=== PATIENT | female | born 1950 | race Caucasian/White ===

== ENCOUNTER 2017-03-25 05:42 | Inpatient (IN) | payer OTHER, MEDICARE ==
[2017-03-25] VITALS (11 sets, daily range): BP systolic 101–136; BP diastolic 62–83; PULSE 75–94; RESP 13–18; O2SAT 87–98
[~2017-03-25] VITALS: Ht 170.2 cm; Wt 104.1 kg
[~2017-03-25 05:42] MED LIST: ASPI-973 PO; CLOB15CR3 TOP; HYDR25TA4 PO; IBUP-1827 PO; LEVO150C2 PO; Lactated Ringer's 1,000 ML IV SCH; NAPR220C11 PO; SIMV20TA4 PO; SITA100T12 PO
[2017-03-25] MEDS ORDERED: fentaNYL-PF 50 mCg/mL 2 mL Inj ONE (05:58)
[2017-03-25] MEDS ORDERED: Dexamethasone 4 mg/mL Inj ONE (05:58)
[2017-03-25] MEDS ORDERED: Ondansetron 2 mg/mL 2 mL Inj ONE (05:58)
[2017-03-25] MEDS ORDERED: Bupivacaine Liposome 1.3% 20 mL Inj INFILTRATE ONE (06:00)
[2017-03-25] MEDS ORDERED: Propofol 10,000 mCg/mL 20 mL Inj ONE (06:00)
[2017-03-25] MEDS ORDERED: Vancomycin 1,000 mg/200 mL NS IV ONE (06:00)
[2017-03-25] MEDS ORDERED: CeFAZolin 2 Gm/50 mL D5W Premix IV ONE (06:00)
[2017-03-25] MEDS ORDERED: 0.9% Sodium Chloride 1,000 ML IV ONE (06:05)
--- NOTE | 2017-03-25 06:40 | PCM.HPANE ---
Patient Data Surgeon Admitting Provider: Attending Provider:Easton Alston DO Primary Care Physician:Shannon Glez PA-C Other Provider:Catarino Leblanc Anesthesia Reason for Visit Right Knee Djd Ht/WT & BMI Height (Feet): 5 Height (Inches): 7.00 Weight (Kilograms): 104.1 Body Mass Index 36.00 Allergies Coded Allergies: meloxicam (Verified Allergy, Mild, DIAHRREA, 04/09/16) Sulfa (Sulfonamide Antibiotics) (Verified Allergy, Unknown, 04/01/16) lactose (Verified Allergy, Unknown, 04/01/16) latex (Verified Allergy, Unknown, 04/01/16) metformin (Verified Allergy, Unknown, diarrhea, 04/05/16) Past Anesthesia History Anesthesia History: Denies:: Abnormal Airway, Anesthesia Reactions, Difficult Intubation, Fam Anesthesia Reaction, Fam Malignant Hypertherm, Malignant Hyperthermia Diabetes History Hx Diabetes?: Yes Type of Diabetes: Type II Glycemic Control: Diet Controlled Current Bedside Blood Glucose: 137 MRSA MRSA: No Medications Blood Thinner: Aspirin Hypertension Medication: Yes Home Meds Incl Beta Cheryl: No Reported Medications Olmesartan (Benicar)40 Mg Nwpwtk13 Mg PO DAILY Ref 0 03/25/17 Levothyroxine (Tirosint)150 Mcg Tdgdelu347 Mcg PO DAILY 03/21/17 Simvastatin 20 Mg Zedlyk70 Mg PO HS Ref 0 03/21/17 Sitagliptin Phos (Januvia)100 Mg Oftpoz625 Mg PO DAILY Ref 0 03/21/17 Ibuprofen 600 Mg Fhkvzh071 Mg PO QID PRN For Pain Ref 0 03/21/17 Hydrochlorothiazide 25 Mg Oigrzd20 Mg PO DAILY 30 Days Ref 0 03/21/17 Clobetasol Propionate/Emoll (Clobetasol Emollient 0.05% Crm)15 Gm Cream..g.1 Appl TOP BID PRN skin irritation #1 TUBE 03/21/17 Aspirin 81 Mg Xegnmo51 Mg PO DAILY Ref 0 03/21/17 Naproxen Sodium (Aleve)220 Mg Xsafvqm487 Mg PO PRN For Pain 03/21/17 Discontinued Reported Medications Triamcinolone Acet (Triamcinolone Acetonide Cream)1 Applic/0.25 Gm Cr1 Applic EXT BID #60 GM Ref 0 04/01/16 Levothyroxine (Tirosint)150 Mcg Ajpobag438 Mcg PO DAILY 04/01/16 Simvastatin 20 Mg Eckyfm09 Mg PO HS Ref 0 04/01/16 Estradiol 0.025 mg/24 hr Patch 1 Each Patch.tdwk1 Patch TRANSDERM WEEKLY Ref 0 04/01/16 Clobetasol Propionate 15 Gm Oint...g.15 Gm TP PRN irritation 04/01/16 Olmesartan (Benicar)20 Mg Wtsfgj36 Mg PO DAILY Ref 0 04/01/16 Discontinued Scripts Enoxaparin Sodium 40 Mg/0.4 Ml Qqfbuen77 Mg SUBQ Q24H #10 SYR Prov:Ameena Bragg PA-C 04/12/16 Hydroxyzine Pamoate (HydrOXYzine Pamoate)25 Mg Aoqqbdg69 Mg PO Q4H PRN For Spasm and/or Restlessness #50 CAPSULE Prov:Ameena Bragg PA-C 04/12/16 oxyCODONE-Acetaminophen 5-325 mg 1 Each Tablet1-2 Tab PO Q4H PRN For Severe Pain #90 TABLET Max 8 per day Prov:Ameena Bragg PA-C 04/12/16 History History of ENT Problems?: No HEENT History: Positive for:: Sinus Problem (sinus surgery) Denies:: Abnormal Airway Difficult Intubation Hearing Problem Denture Type: None Teeth Condition: Within Normal Limits Hx of Heart Problems?: Yes Cardiovascular History: Positive for:: Hypertension Denies:: AICD Atrial Fibrillation Heart Murmur Irregular Heartbeat Pacemaker Hx of Respiratory Problem?: No Respiratory History: Denies:: Asthma COPD Emphysema Oxygen Administration Use of C-PAP Machine Hx Neurologic Problems?: Yes Neurological History: Positive for:: Headaches Denies:: Dementia Hx of GI Problems?: No Hx of Problems?: No Genitourinary History: Denies:: Kidney Stones Urinary Tract Infection Female Hx: Denies:: Currently Problems with Breasts? Skin History: Denies:: History Skin Disorders? Pressure Ulcers Hx Musculoskeletal Problems?: Yes Musculoskeletal History: Positive for:: Degenerative Joint Joint Replacement (left knee) Osteoarthritis Denies:: Musculoskeletal Trauma (right knee current admission problem) Hx of Psycho/Social Problems?: No Psycho Social History: Denies:: Hx Depression Hx Surgeries?: Yes (Hyster, L knee, tonsils, c section,lap ovarian cyst, feet, nose ) Hx Any Other Health Problems?: Yes Other History: Positive for:: Thyroid Disease Denies:: Cancer Hx Diabetes: YesBedside Blood Glucose: 137 Hx Alcohol Use: NoHx Substance Use: No Smoking Status: Never Smoker Have You Smoked inLast 12 mo: No Stop/Bang Treated for Sleep Apnea?: No Do You Have a CPAP Machine?: No S-Snoring: Do You Snore Loudly: Yes T-Tired: feel tired, fatigued: No O-Obsered: Observed not breath: No P-Blood Pressure: treated: Yes B- Body Mass Index > 35 kg/m2: No A- Age over 50: No N- Neck Large Circumference: No G- Gender Male: No APARNA Risk Assessment: Low Risk, <3 Yes Risk Assessment Category Category 1A: Patient has history of documented sleep apnea, and HAS NOT received any narcotic, sedative or anesthesia administration during this stay. Category 1B: Patient has history of documented sleep apnea, and HAS received any narcotic , sedative or anesthesia administration during this stay Category 2: Patient has SUSPECTED Obstructive Sleep Apnea, and HAS received any narcotic , sedative or anesthesia administration during this stay. Category 3: Patient has SUSPECTED Obstructive Sleep Apnea and HAS NOT received narcotic, sedative or anesthesia administration during this stay. Category 4: Outpatient in Procedural Areas with known sleep apnea or who screen positive for High Risk via the STOP/BANG questionnaire. Exam Exam Vital Signs Vital Signs Date Time Temp Pulse Resp B/P Pulse Ox O2 Delivery O2 Flow Rate FiO2 03/25/17 06:16 36.5 83 18 134/83 95 Room Air General Appearance: Alert, Oriented X3, Cooperative, No Acute Distress HEENT/AIRWAY: MP 2 Lungs: Clear to Auscultation, Normal Air Movement Heart: Exam Unremarkable, Regular Rate/Rhythm, No Murmurs/Rubs/Gallops Meds/Labs/Diagnostics Admission Meds Current Medications Sodium Chloride (Normal Saline) 1,000 ml @ ud STK-MED ONCE IV Last administered on 03/25/17t 06:05; Start 03/25/17 at 06:05; Stop 03/25/17 at 06:24 ; Status DC Bedside Blood Glucose: 137 Plan Impression Patient chart reviewed, patient interviewed and anesthestic plan with risks, benefits, and alternatives discussed, and informed consent obtained. NPO per Anesth. Guidelines: Yes ASA Physical Status: ASA2 Mod Systemic Disease Anesthetic Plan: Regional Block, SAB Bene/Risks/Altern/Consents: Yes HP Complete Prior to Induction: Yes Noe Garcia MD Mar 25, 2017 06:40
[2017-03-25] MEDS ORDERED: OLME40TA3 PO (07:18)
[2017-03-25] MEDS ORDERED: 0.9% Sodium Chloride 10 mL Inj INFILTRATE ONE (08:15)
[2017-03-25] MEDS ORDERED: Bupivacaine-MPF 0.5% W/EPI 30 mL Inj INFILTRATE ONE (08:15)
[2017-03-25] MEDS ORDERED: Lactated Ringer's 500 ML IV PRN (08:23)
[2017-03-25] MEDS ORDERED: Lactated Ringer's 1,000 ML IV SCH (08:23)
[2017-03-25] MEDS ORDERED: HYDROmorphone 1 mg/mL Inj IVPUSH PRN (08:25)
[2017-03-25] MEDS ORDERED: Ondansetron 2 mg/mL 2 mL Inj IVPUSH PRN ×2 (08:25→10:00)
[2017-03-25] MEDS ORDERED: Dexamethasone 4 mg/mL Inj IVPUSH PRN (08:25)
[2017-03-25] MEDS ORDERED: MetoCLOpramide 5 mg/mL 2 mL Inj IVPUSH PRN (08:25)
[2017-03-25] MEDS ORDERED: EPHEDrine Sulfate 50 mg/mL Inj IVPUSH PRN (08:25)
[2017-03-25] MEDS ORDERED: Phenylephrine 10,000 mCg/mL Inj IVPUSH PRN (08:25)
[2017-03-25] MEDS ORDERED: Atropine 0.4 mg/mL Inj IVPUSH PRN (08:25)
[2017-03-25] MEDS ORDERED: Labetalol 5 mg/mL 4 mL Inj IV PRN (08:25)
[2017-03-25] MEDS ORDERED: fentaNYL-PF 50 mCg/mL 2 mL Inj IVPUSH PRN (08:25)
[2017-03-25] MEDS ORDERED: Lactated Ringer's 1,000 ML IV ONE (09:12)
[2017-03-25] MEDS ORDERED: Acetaminophen IV 1,000 MG in IV Premix 1 EACH IV ONE (10:00)
[2017-03-25] MEDS ORDERED: diphenhydrAMINE 25 mg Capsule PO PRN (10:00)
[2017-03-25] MEDS ORDERED: Magnesium Hydroxide 10 mL Oral Concentration PO PRN (10:00)
[2017-03-25] MEDS ORDERED: Polyethylene Glycol (PEG) 17 Gm Powder PO PRN (10:00)
--- NOTE | 2017-03-25 10:36 | OP ---
[address] [address] OPERATIVE REPORT PATIENT: NILO AYALA : 1950 MR#: [id number] ADMIT: 03/25/2017 JOB ID: [id number] DATE OF SURGERY: 03/25/2017 PREOPERATIVE DIAGNOSIS(ES): Right knee degenerative joint disease. POSTOPERATIVE DIAGNOSIS(ES): Right knee degenerative joint disease. PROCEDURE: Right total knee arthroplasty. SURGEON: Easton Alston DO. ANESTHESIA: Spinal with block. INDICATIONS: The patient is a 66-year-old female with right knee severe degenerative arthritis who has failed conservative measures and wished to proceed with a right total knee arthroplasty. We discussed the risks, benefits and possible complications of surgery including, but not limited to, injury to nerves and vessels, infection, bleeding, incomplete relief of symptoms, stiffness, need for additional procedures. The patient had good understanding. All questions were answered. She wished to proceed. Also, a medical surgical tech was required for the successful completion of this procedure. PROCEDURE IN DETAIL: The patient was brought to the operating room. She was given a preoperative antibiotic and spinal anesthetic and femoral nerve block. A surgical time-out was performed. She was given 1 g TXA preoperatively, as well as vancomycin and Ancef. The right knee was sterilely prepped and draped. An incision was made longitudinally over the knee. Dissection was carefully carried through the subcutaneous tissue. Electrocautery and tourniquet were used for hemostasis. An incision was made over the quad tendon and taken along the medial retinaculum leaving a cuff of tissue for repair. This was taken to a point just distal to the tibial tubercle. The patella was then everted. A portion of the fat pad and anterior horn of medial and lateral menisci were removed, and the femur was then instrumented with the intramedullary drill, followed by the cutting block for a 5-degree distal valgus cut angle with 10 mm planned resection. The block was pinned into position. The cut was performed and it. Attention was directed towards the tibia. We used an extramedullary tibial cutting guide, pinned this to the tibia and then performed the cut completed with an osteotome and the tibial cut surface was then removed along with the remainder of the menisci. The femur was then sized, felt to be a size 6. With 3 degrees of external rotation the block was pinned into position. The distal femoral cuts were performed. The box cut was then performed, and the knee was trialed with the 6 femur and 5 tibia. Some additional medial release was performed, and the knee seemed to work quite nicely with the size 6 thickness poly. The patella was resurfaced with a free-hand technique, cut from initial thickness of 24 to a thickness of 15, a 35 mm patellar button was chosen, drilled for and trialed and had excellent tracking. The tibia was then drilled and punched. The femur was drilled, and the bony surfaces were washed and dried. The components were cemented into position beginning with the tibia, followed by the femur and the patella. After the cement had been allowed to polymerize, we trialed again and elected to stick with the size 6 thickness poly, which was impacted without difficulty. Again, this was an picsell total knee arthroplasty system. The wound was irrigated and closed with interrupted #1 Surgilon and 0 Vicryl. The subcu was closed with 2-0 Vicryl. The skin was closed with a running subcuticular 3-0 V-Loc suture. A mixture of Exparel and Marcaine was added as an adjunct local anesthetic. Sterile dressings were applied. Patient tolerated the procedure well. Blood loss was 50 cc. POSTOPERATIVE PROTOCOL: Have the patient weightbear to tolerance, use a walker for ambulation, ice and elevate, and plan to use [place] 5/325 for postoperative pain and Lovenox for DVT prophylaxis.
--- NOTE | 2017-03-25 10:57 | DRSVH ---
PROCEDURE: X-RAY RIGHT KNEE, ONE OR TWO VIEWS ([id number]) INDICATIONS: post op TECHNIQUE: 2 views of the knee were acquired. COMPARISON: [facility], CR, XR KNEE ARTHRITIC SERIES RT, 12/18/2016, 11:04. [facility], CR, XR KNEE 1 OR 2VW LT, 07/24/2016, 11:03. FINDINGS: Expected postoperative changes are present related to a total right knee arthroplasty. The metallic prosthetic components are appropriately positioned without periprosthetic fracture or definite peripr osthetic lucency. The overlying soft tissues demonstrate soft tissue edema and air. There is air co ntained within the joint space. A bandage overlying the anterior margin of the knee is noted. No un expected radiopaque foreign bodies are appreciated. IMPRESSION: Expected postoperative changes related to a total right knee arthroplasty. Dictated by: Toan Lockwood M.D. on 03/25/2017 at 9:55 Approved by: Toan Lockwood M.D. on 03/25/2017 at 9:56
--- NOTE | 2017-03-25 11:10 | NUR ---
Post op Pt arrived to [facility] room 1006 At 1110 via pts bed. Pt is A&Ox3 on 2L via SC. SOFTWARE APPLICATIONS SPECIALIST placed. Denies pain and nausea. Dressing C/D/I. Cap refill WNL. Extremity pink and warm to touch. Some numbness and tingling bilaterally in feet. Pt oriented to the room and call light and Orientation DVD playing. Care continues.
--- NOTE | 2017-03-25 11:11 | PCM.ANEP1 ---
Post Anesthesia PACU Phase 1 Assessment Vital Signs Vital Signs Date Time Temp Pulse Resp B/P Pulse Ox O2 Delivery O2 Flow Rate FiO2 03/25/17 10:50 80 15 116/74 96 Nasal Cannula 2 03/25/17 10:35 78 16 122/80 97 Nasal Cannula 2 03/25/17 10:33 15 98 03/25/17 10:20 75 13 122/73 95 Room Air 03/25/17 10:15 77 15 108/66 94 Room Air 03/25/17 10:10 75 13 105/62 95 Room Air 03/25/17 10:05 36.0 77 16 101/66 94 Room Air 03/25/17 06:16 36.5 83 18 134/83 95 Room Air Anesthetic Administered: SAB Level of Alertness: Awake, talking SIMS's with Equal Strength: No Pain: No Nausea or Vomiting: No CV Function & Hydration Stable: Yes Airway Device: Oxygen Delivery: Room Air Lungs: Clear to Auscultation, Normal Air Movement Dermatome Level: T10 (Umbilicus) PACU Phase 2 Assessment Patient Instructions Provided: N/A Noe Garcia MD Mar 25, 2017 11:11
[2017-03-25] MEDS ORDERED: HYDROmorphone 0.5 mg/0.5 mL iSecure Syringe IVPUSH PRN (11:25)
[2017-03-25] MEDS: 0.9% Sodium Chloride 1,000 ML IV SCH ×2 (12:13→23:11)
[2017-03-25] MEDS: HYDROcodone-APAP 5-325 mg Tablet PO PRN ×3 (12:25→20:45)
--- NOTE | 2017-03-25 14:53 | NUR ---
Evaluation completed. Please go to "Notes" then click on "Assessments and Notes" (bottom left corner of screen). Then select appropriate discipline tab on top of screen.
[2017-03-25] MEDS: CeFAZolin Inj 2 GM in IV Premix 1 EACH IV SCH ×2 (16:06→23:11)
[2017-03-25] MEDS: Sodium Chloride LOK Flush 10 mL Syringe IV SCH (16:23)
[2017-03-25] MEDS: Senna-Docusate 8.6-50 mg Tablet PO SCH (20:30)
[2017-03-26] VITALS: BP 138/81; PULSE 96; RESP 17; O2SAT 96
[2017-03-26] MEDS: HYDROcodone-APAP 5-325 mg Tablet PO PRN ×5 (01:04→20:01)
[2017-03-26] MEDS: Sodium Chloride LOK Flush 10 mL Syringe IV SCH ×3 (01:06→16:33)
[2017-03-26] MEDS: hydrOXYzine Pamoate 25 mg Capsule PO PRN ×4 (02:54→22:07)
--- NOTE | 2017-03-26 03:58 | NUR ---
Pain Pt reporting pain from 3-8/10 and increasing with activity. Pt is taking 2 [place] q4 hrs and Vistaril intermittently. Pt reporting this to be effective but pain does come back after 4 hrs. Full sensation to right leg, brisk cap refill and warm extremities. Denies nausea. Pt is up to BR with SBA and FWW, tolerating activity well. Pt on 2-3L O2 via NC overnight to keep O2 sats above 92% with CPOx.
[2017-03-26 05:05] VITALS: BP 134/78; PULSE 94; RESP 17; O2SAT 97
[2017-03-26] MEDS: 0.9% Sodium Chloride 1,000 ML IV SCH ×2 (05:21→15:58)
[2017-03-26 05:30] LABS: BASOPHILS % (AUTO) 0.1 % (0-3); EOSINOPHILS % (AUTO) 0 % (0-5); Mean Corpuscular Hemoglobin 27.2 pg (27.0-35.0); Mean Corpuscular Volume 82.2 fL (81-100); NEUTROPHILS % (AUTO) 80.9 % (40-74); Platelet Count 272 bil/L (150-400)
[2017-03-26] MEDS: Senna-Docusate 8.6-50 mg Tablet PO SCH ×3 (07:37→20:38)
--- NOTE | 2017-03-26 08:17 | PCM.PNORTH ---
Subjective Date of Service: Mar 26, 2017 Visit Information: Reason for Visit Right Knee Djd Surgery/Surgery Date RIGHT TOTAL KNEE 03/25/17 Post-Op Day # 111 Date of Admission: Mar 25, 2017 at 11:08 Hospital Day # Subjective Patient ambulated 140 feet with physical therapy last night. The leg was feeling great. However during the night the block wore off and she has been having some incisional pain. Pain has been managed with alternating Vistaril and 1 [place] every 2 hours. Patient feels that she will be ready for discharge tomorrow. She has outpatient physical therapy scheduled for next week Postop General: No Shortness of Breath, No Chest Pain, Good Appetite Pain Management: PO, IV Push, Good Pain Control Objective Exam Objective Patient is seen sitting up in bed Vital Signs and I/O Vital Sign - Last Date Time Temp Pulse Resp B/P Pulse Ox O2 Delivery O2 Flow Rate FiO2 03/26/17 05:05 36.8 94 17 134/78 97 Room Air 03/25/17 10:50 2 Intake and Output 03/25/17 03/25/17 03/26/17 Cumulative From/Thru 15:00 23:00 07:00 03/21/17 11:33 - 03/26/17 05:25 Intake Total 1395 ml 1025 ml 1204 ml 3824 ml Output Total 50 ml 650 ml 700 ml Balance 1345 ml 1025 ml 554 ml 3124 ml Intake Oral 357 ml 637 ml 994 ml IV Total 1395 ml 668 ml 567 ml 2830 ml Output Urine Total 650 ml 650 ml Estimated Blood Loss 50 ml 50 ml # Voids 1 1 # Bowel Movements 0 0 0 Lab & Micro Results Laboratory Tests Test 03/26/17 04:55 White Blood Count 15.5th/mm3 (3.8-10.1) Red Blood Count 4.37mil/mm3 (3.90-5.20) Hemoglobin 11.9g/dL (12.0-15.6) Hematocrit 35.9% (35.0-46.0) Mean Corpuscular Volume 82.2fL (81-100) Mean Corpuscular Hemoglobin 27.2pg (27.0-35.0) Mean Corpuscular Hemoglobin Concent 33.1% (32.0-37.0) Red Cell Distribution Width 15.0% (12.3-15.4) Platelet Count 272bil/L (150-400) Neutrophils (%) (Auto) 80.9% (40-74) Lymphocytes (%) (Auto) 8.7% (14-46) Monocytes (%) (Auto) 10.0% (4-12) Eosinophils (%) (Auto) 0% (0-5) Basophils (%) (Auto) 0.1% (0-3) Sodium Level 134mEq/L (134-144) Potassium Level 4.1mEq/L (3.5-5.2) Chloride Level 98mEq/L (97-108) Carbon Dioxide Level 20mmol/L (18-29) Blood Urea Nitrogen 18mg/dL (8-27) Creatinine 0.66mg/dL (0.57-1.00) Estimat Glomerular Filtration Rate 129mL/min (>59) Glucose Level 223mg/dL (60-99) Calcium Level 9.2mg/dL (8.5-10.1) Result Diagram: 03/26/17 0455 03/26/17 0455 General Appearance: Alert, Oriented X3, Cooperative, No Acute Distress Extremities: Distal Pulses Palpable, No Compartment Syndrom Noted, Thigh & Calf Soft/Nontender, Distal Pulses by Doppler Postop Sensory Motor: Distal Motor Intact SURGICAL WOUND : Incision General Appearance: No Direct Observation Dressing & Drainage Status: Intact (clean and dry) Activity: Activity per PT Catheters: None Assessment & Plan Impression POD #1 right total knee arthroplasty Problems: Plan Weightbearing: Weightbearing as tolerated with walker DVT prophylaxis: Lovenox 40 mg subcutaneous 2 weeks followed by aspirin 325 mg twice a day 4 weeks Physical therapy for transfers, progressive ambulation, therapeutic exercise Wound care: PA will change dressing on postop day 2 Discharge plan: Discharge home tomorrow. Start outpatient physical therapy next week Follow-up plan: In 2 weeks at [facility] with PA for wound check and at [address] Alston with x-rays Pain Management: [place], Vistaril, IV Tylenol VTE Prophylaxis: Sub-Q Enoxaparin, SCDs Resuscitation Status: CPR: Attempt Resuscitation Ameena Bragg PA-C Mar 26, 2017 08:17
[2017-03-26] MEDS ORDERED: OLMESARTAN 40 MG PO SCH (08:30)
[2017-03-26] MEDS ORDERED: SITAGLIPTIN PHOS 100 MG PO SCH (08:30)
[2017-03-26] MEDS ORDERED: LEVOTHYROXINE 150 MCG PO SCH (08:30)
[2017-03-26 09:02] VITALS: BP 131/72; PULSE 94; RESP 16; O2SAT 95
[2017-03-26 12:37] VITALS: BP 139/77; PULSE 88; RESP 14; O2SAT 97
--- NOTE | 2017-03-26 13:40 | NUR ---
Social Work- Initial Assessment/ Readiness for Discharge. Data: See Initial Assessment. Pt is a 67 year old female admitted 03/25/17 for right knee DJD per H&P. Pt is anticipated to discharge tomorrow pending clinical course. Pt's insurance is [employer] of [facility] and [employer]. Pt's PCP is Shannon Glez PA-C. Pt resides in [place] with her spouse in a two story home with all necessities on the main floor where she remains independent at baseline. Pt has a walker at home for assistance after this admission but does not typically use any DME. Pt drives. Pt has no LTC or VA benefits. Pt has no HH or SNF history. Pt has DPOA completed, Rodger Caldwell [phone]. SW encouraged pt to bring in copy to [facility]. Pt agreeable. Pt to discharge home with to transport via POV. No discharge needs identified at this time. SW will continue to follow if needs arise. Assessment: Pt who is independent at baseline. Plan: Pt to discharge home with to transport via POV. No discharge needs identified at this time. SW will continue to follow if needs arise. ZACHARIAH Cheng Addendum: 03/26/17 at 1344 by INOCENTE MOORE Amended: Links added.
[2017-03-26 19:40] VITALS: BP 142/72; PULSE 104; RESP 18; O2SAT 95
[2017-03-27] MEDS: Sodium Chloride LOK Flush 10 mL Syringe IV SCH ×2 (01:24→08:13)
[2017-03-27] MEDS: 0.9% Sodium Chloride 1,000 ML IV SCH (01:58)
[2017-03-27] MEDS: HYDROcodone-APAP 5-325 mg Tablet PO PRN ×3 (03:46→11:22)
[2017-03-27 05:04] VITALS: BP 142/74; PULSE 97; RESP 18; O2SAT 94
[2017-03-27 05:16] LABS: BASOPHILS % (AUTO) 0.2 % (0-3); EOSINOPHILS % (AUTO) 0.8 % (0-5); MONOCYTES % (AUTO) 14.5 % (4-12); Mean Corpuscular Hemoglobin 27.3 pg (27.0-35.0); Mean Corpuscular Volume 82.5 fL (81-100); NEUTROPHILS % (AUTO) 68.4 % (40-74); Platelet Count 248 bil/L (150-400)
--- NOTE | 2017-03-27 07:24 | NUR ---
Pain Patient's pain level has been managed by alternating [place] and Vistaril. Patient A&Ox3. Patient ambulating well from bed to bathroom with FWW. Vitals stable.
[2017-03-27] MEDS: Senna-Docusate 8.6-50 mg Tablet PO SCH (08:13)
--- NOTE | 2017-03-27 08:13 | PCM.PNORTH ---
Subjective Date of Service: Mar 27, 2017 Visit Information: Reason for Visit Right Knee Djd Surgery/Surgery Date RIGHT TOTAL KNEE 03/25/17 Post-Op Day # 2 Date of Admission: Mar 25, 2017 at 11:08 Hospital Day # Subjective Patient complains of incisional pain but is tolerable. She is alternating Vistaril and [place] for good pain relief. She did well with physical therapy yesterday and walked 100 250 feet. She feels that she is ready for discharge today. Postop General: No Shortness of Breath, No Chest Pain, Good Appetite Pain Management: PO, Good Pain Control Objective Exam Objective Patient is seen sitting up in bed Vital Signs and I/O Vital Sign - Last Date Time Temp Pulse Resp B/P Pulse Ox O2 Delivery O2 Flow Rate FiO2 03/27/17 05:04 36.6 97 18 142/74 94 Room Air 03/25/17 10:50 2 Intake and Output 03/26/17 03/26/17 03/27/17 Cumulative From/Thru 15:00 23:00 07:00 03/21/17 11:33 - 03/27/17 05:04 Intake Total 973 ml 400 ml 5197 ml Output Total 1500 ml 1450 ml 3650 ml Balance -527 ml -1050 ml 1547 ml Intake Oral 973 ml 400 ml 2367 ml IV Total 2830 ml Output Urine Total 1500 ml 1450 ml 3600 ml Estimated Blood Loss 50 ml # Voids 1 # Bowel Movements 0 0 0 Lab & Micro Results Laboratory Tests Test 03/27/17 04:50 White Blood Count 13.0th/mm3 (3.8-10.1) Red Blood Count 4.17mil/mm3 (3.90-5.20) Hemoglobin 11.4g/dL (12.0-15.6) Hematocrit 34.4% (35.0-46.0) Mean Corpuscular Volume 82.5fL (81-100) Mean Corpuscular Hemoglobin 27.3pg (27.0-35.0) Mean Corpuscular Hemoglobin Concent 33.1% (32.0-37.0) Red Cell Distribution Width 15.5% (12.3-15.4) Platelet Count 248bil/L (150-400) Neutrophils (%) (Auto) 68.4% (40-74) Lymphocytes (%) (Auto) 15.7% (14-46) Monocytes (%) (Auto) 14.5% (4-12) Eosinophils (%) (Auto) 0.8% (0-5) Basophils (%) (Auto) 0.2% (0-3) Sodium Level 132mEq/L (134-144) Potassium Level 4.0mEq/L (3.5-5.2) Chloride Level 94mEq/L (97-108) Carbon Dioxide Level 22mmol/L (18-29) Blood Urea Nitrogen 19mg/dL (8-27) Creatinine 0.62mg/dL (0.57-1.00) Estimat Glomerular Filtration Rate 138mL/min (>59) Glucose Level 180mg/dL (60-99) Calcium Level 9.1mg/dL (8.5-10.1) Result Diagram: 03/27/1744903/27/17449 General Appearance: Alert, Oriented X3, Cooperative, No Acute Distress Extremities: Distal Pulses Palpable, No Compartment Syndrom Noted, Thigh & Calf Soft/Nontender Postop Sensory Motor: Distal Motor Intact, NVI Distally SURGICAL WOUND : Wound Location/Description Right knee: Surgical dressing is removed, there is minimal serous drainage. There is no erythema present. Steri-Strips are intact. The wound is cleansed with hydrogen peroxide. The wound is dressed with Silverlon and ABD pad, held in place with an elastic bandage. Patient will have thigh-high compression stockings applied today and elastic bandage may be removed at that time. Activity: Activity per PT Catheters: None Assessment & Plan Impression POD #2 status post right TKA Problems: Plan Patient is progressing well with physical therapy and may be discharged home today Weightbearing: Weightbearing as tolerated with walker DVT prophylaxis: Lovenox 40 mg subcutaneous 2 weeks followed by aspirin 325 mg twice a day 4 weeks No NSAID's while on Lovenox Physical therapy for transfers, progressive ambulation, therapeutic exercise Wound care: Change dressing every 2-3 days. Discharge plan: Discharge home today. Start outpatient physical therapy next week as scheduled Wear thigh-high compression stockings on surgical leg for 4 weeks, and nonsurgical leg for 2 weeks. Follow-up plan: In 2 weeks at [facility] with PA for wound check and at [address] Alston with x-rays VTE Prophylaxis: Sub-Q Enoxaparin, SCDs Resuscitation Status: CPR: Attempt Resuscitation Ameena Bragg PA-C Mar 27, 2017 08:13
--- NOTE | 2017-03-27 08:26 | PCM.DIORTH ---
Ortho Discharge Instruction Date of Service: Mar 27, 2017 Dates of Hospitalization Date of Hospital Admission Mar 25, 2017 at 11:08 Providers Admitting Physician: Easton Alston DO Primary Care Physician: Shannon Glez PA-C Attending Physician: Easton Alston DO Diet Discharge Diet: Diabetic Activity Discharge Activity-General: Balance rest and activity, Elevate & ice extremity Right Lower Extremity: Weight Bearing as tolerated Range of motion restrictions: Push yourself with bending the knee a little more each day. Discharge Assist Device: Front Wheeled Walker Dressing and Incisional Care Discharge Dressing Care: Keep dressing clean, dry & intact Discharge Hygiene: May shower (see instructions below), DO NOT soak incision under water, NO bathtub, hot tub or whirlpool Additional Instructions Discharge Instructions Weightbearing: Weightbearing as tolerated with walker DVT prophylaxis: Lovenox 40 mg subcutaneous 2 weeks followed by aspirin 325 mg twice a day 4 weeks No NSAID's while on Lovenox Wound care: change dressing in 2-3 days On Friday, the patient may shower if the wound has no drainage present. Wound may be uncovered to shower. Let soap and water run over the wound, pat dry and apply a new dressing. Wear thigh-high compression stockings on surgical leg for 4 weeks, and nonsurgical leg for 2 weeks. Start out patient PT next week Follow Up Plan Follow Up Plan Follow-up plan: In 2 weeks at [facility] with HAROON for wound check and at [address] Alston with x-rays Call your provider for: Fever, Chills, Shortness of breath, Vomitting, Drainage at incision, Wound redness, Increasing pain Ameena Bragg PA-C Mar 27, 2017 08:26
[2017-03-27] MEDS ORDERED: ENOX40DI8 SUBQ (09:33)
[2017-03-27] MEDS ORDERED: HYDR-4003 PO (09:33)
[2017-03-27] MEDS ORDERED: HYDR-3797 PO (09:33)
--- NOTE | 2017-03-27 09:37 | PCM.DC.ORT ---
Discharge Summary Date of Service: Mar 27, 2017 Date of Hospital Admission: Mar 25, 2017 at 11:08 Date of Surgery: Mar 25, 2017 Date of Discharge: Mar 27, 2017 Reason for Hospitalization: Right knee arthritis Procedures Performed: Right total knee arthroplasty Hospital Course: The patient was admitted to the hospital on 03/25/2017 and underwent the above procedure. Antibiotic prophylaxis consisting of Ancef and vancomycin. The surgeon was Dr. Alston. Patient tolerated the procedure well and was transferred to recovery room in stable condition. Patient had physical therapy to work on ambulation and transfers. Weightbearing as tolerated with walker. Pain was managed with Vistaril, Toradol, [place]. DVT prophylaxis: Lovenox 40 mg SQ, SCDs, MICAELA hose. Patient progressed well with physical therapy and on POD- 2 was discharged home with her to assist in her care. Follow-up: at [facility] 2 weeks postop for wound check and at [address] Alston with x-ray Diagnosis at Time of Discharge Status post right TKA Problems: Disposition: discharged home in stable condition Additional Information Follow-up plan: In [address] [facility] with PA for wound check and at [address] Alston with x-rays Discharge Instructions: Diet Discharge Diet: Diabetic Activity Discharge Activity-General: Balance rest and activity, Elevate & ice extremity Right Lower Extremity: Weight Bearing as tolerated Range of motion restrictions: Push yourself with bending the knee a little more each day. Discharge Assist Device: Front Wheeled Walker Dressing and Incisional Care Discharge Dressing Care: Keep dressing clean, dry & intact Discharge Hygiene: May shower (see instructions below), DO NOT soak incision under water, NO bathtub, hot tub or whirlpool Additional Instructions Discharge Instructions Weightbearing: Weightbearing as tolerated with walker DVT prophylaxis: Lovenox 40 mg subcutaneous 2 weeks followed by aspirin 325 mg twice a day 4 weeks No NSAID's while on Lovenox Wound care: change dressing in 2-3 days On Friday, the patient may shower if the wound has no drainage present. Wound may be uncovered to shower. Let soap and water run over the wound, pat dry and apply a new dressing. Wear thigh-high compression stockings on surgical leg for 4 weeks, and nonsurgical leg for 2 weeks. Start out patient PT next week Clobetasol Propionate/Emoll (Clobetasol Emollient 0.05% Crm) 15 Gm Cream..g. 1 APPL TOP BID PRN PRN skin irritation Enoxaparin Sodium (Enoxaparin Sodium) 40 Mg/0.4 Ml Syringe 40 MG SUBQ Q24 Hydrochlorothiazide (Hydrochlorothiazide) 25 Mg Tablet 25 MG PO DAILY Hydrocodone-Acetaminophen 5-325 mg (Hydrocodone-Acetaminophen 5-325 mg) 1 Each Tablet 1-2 TABLET PO Q4H PRN PRN For Moderate Pain Max 8 per day Hydroxyzine Pamoate (HydrOXYzine Pamoate) 25 Mg Capsule 25 MG PO Q4H PRN PRN For Spasm and/or Restlessness Levothyroxine (Tirosint) 150 Mcg Capsule 150 MCG PO DAILY Olmesartan (Benicar) 40 Mg Tablet 40 MG PO DAILY Simvastatin (Simvastatin) 20 Mg Tablet 20 MG PO HS Sitagliptin Phos (Januvia) 100 Mg Tablet 100 MG PO DAILY Ameena Bragg PA-C Mar 27, 2017 09:37
[2017-03-27] MEDS: hydrOXYzine Pamoate 25 mg Capsule PO PRN (09:55)
--- NOTE | 2017-03-27 10:20 | NUR ---
Social Work-Discharge Data: See Initial Assessment. Pt is a 67 year old female admitted 03/25/17 for right knee DJD per H&P. Pt is medically stable for discharge today after PT works with her. PT observed ambulating pt in the room this AM. Pt to discharge home with to transport via POV. No discharge needs identified at this time. Assessment: Pt who is independent at baseline. Plan: Pt to discharge home with to transport via POV. No discharge needs identified at this time. ZACHARIAH Cheng
--- NOTE | 2017-03-27 13:25 | NUR ---
discharge home with . Eating/drinking well, ambulatory with walker, good pain control, discharge teaching done and pt was able to repeat back. Her will be doing her Lovenox injections(He gives himself Insulin)will have f/u appt with 2 weeks with PAC
== END 2017-03-27 11:30 | disposition home or self-care (01) | DRG 470 ==
LOC: SAS 05:42 → OSC 11:08
PROVIDERS: ADMIT Orthopaedic Surgery; ATTEND Orthopaedic Surgery
PROC: 0SRC0J9 Replacement of Right Knee Joint with Synthetic Substitute, Cemented, Open Approach (ICD-10-PCS; principal; 2017-03-25 07:30)
DX: M17.11 Unilateral primary osteoarthritis, right knee (principal); E11.9 Type 2 diabetes mellitus without complications; I10 Essential (primary) hypertension; Z79.82 Long term (current) use of aspirin